=== PATIENT | female | born 1975 | race Caucasian/White ===

== ENCOUNTER 2020-08-13 13:53 | Emergency (ER) | payer OTHER ==
[~2020-08-13] VITALS: Ht 157.5 cm; Wt 66.4 kg
--- NOTE | 2020-08-13 15:19 | NUR ---
pt to room, assumed care. ERP at bedside. UA collected and sent.
[2020-08-13] MEDS ORDERED: LIDOCAINE 5% OINTMENT 35GM TP SCH (16:50)
[2020-08-13] MEDS ORDERED: LIDOCAINE 5% OINTMENT 35GM TP ONE (16:50)
[2020-08-13] MEDS ORDERED: LIDO30CR TOP (17:09)
[2020-08-13 17:42] VITALS: BP 128/81
== END 2020-08-13 17:51 | disposition home or self-care (01) ==
LOC: ER 13:56
DX: N76.0 Acute vaginitis (principal); Z79.899 Other long term (current) drug therapy
CPT/HCPCS: 87070; 87077; 87186; 87210; 99283

== ENCOUNTER 2021-07-28 16:22 | Inpatient (IN) | payer MEDICAID, OTHER ==
[~2021-07-28] VITALS: Ht 157.5 cm; Wt 59.8 kg
[~2021-07-28 16:22] MED LIST: LIDO30CR TOP
--- NOTE | 2021-07-28 18:13 | NUR ---
JANNA WAS CALLED FOR COVID RESULTS; PT IS COVID NEG, RESULTS WILL BE FAXED DR DIAMOND NOTIFIED
[2021-07-28] MEDS ORDERED: heparin sodium, porcine/PF 100unit/ml 5ML syringe IV PRN (18:15)
[2021-07-28 18:17] LABS: BASOPHILS % (AUTO) 0.2 % (0-1); EOSINOPHILS # (AUTO) 0.2 X10'3 (0-0.9); EOSINOPHILS % (AUTO) 2.6 % (0-6); LYMPHOCYTES % (AUTO) 15.1 % (21-51); MEAN CORPUSCULAR HEMOGLOBIN 26.1 PG (27.0-31.0); MEAN CORPUSCULAR HGB CONC 31.9 g/dL (33.0-36.5); MEAN CORPUSCULAR VOLUME 81.7 FL (78-98); MEAN PLATELET VOLUME 7.1 FL (7.4-10.4); MONOCYTES # (AUTO) 0.5 X10'3 (0-0.9); MONOCYTES % (AUTO) 7.4 % (2-12); NEUTROPHILS # (AUTO) 5.1 X10'3 (1.8-7.7); NEUTROPHILS % (AUTO) 74.7 % (42-75); PLATELET COUNT 357 X10'3 (140-440); RED BLOOD COUNT 2.67 X10'6 (4.20-5.60); RED CELL DISTRIBUTION WIDTH 15.7 % (11.5-14.5); WHITE BLOOD COUNT 6.9 X10'3 (4.5-11.0)
[2021-07-28 18:20] LABS: HEMATOCRIT 21.8 % (35.0-45.0); HEMOGLOBIN 6.9 g/dl (12.0-16.0)
[2021-07-28 18:35] LABS: ALANINE AMINOTRANSFERASE 14 U/L (12-78); ALBUMIN 2.6 G/DL (3.4-5.0); ALBUMIN/GLOBULIN RATIO 0.6 (1.1-1.5); ALKALINE PHOSPHATASE 52 IU/L (46-116); ANION GAP 12 (8-16); ASPARTATE AMINO TRANSFERASE 12 U/L (10-37); BILIRUBIN,TOTAL 0.2 MG/DL (0.1-1.0); BLOOD UREA NITROGEN 21 MG/DL (7-18); BUN/CREATININE RATIO 23.3 (6.6-38.0); CALCIUM 8.5 MG/DL (8.5-10.1); CHLORIDE 111 MMOL/L (99-107); GLUCOSE 77 MG/DL (70-104); LIPASE 72 U/L (73-393); POTASSIUM 3.5 MMOL/L (3.5-5.1); SODIUM 142 MMOL/L (135-145); TOTAL CARBON DIOXIDE 18.6 MMOL/L (24-32); TOTAL PROTEIN 7.1 G/DL (6.4-8.2); eGFR 67 ML/MIN
--- NOTE | 2021-07-28 18:49 | NUR ---
PT HAS A PORT ON THE LEFT UPPER CHEST IN PLACE BIG DATA LEAD
[2021-07-28 19:21] LABS: CLARITY,URINE SLIGHTLY CLOUDY (Clear); COLOR,URINE YELLOW (Yellow); GLUCOSE, URINE NEGATIVE (Neg); KETONES,URINE TRACE mg/dl (Neg); LEUKOCYTE ESTERASE ,URINE NEGATIVE (Neg); NITRITES, URINE NEGATIVE (Neg); OCCULT BLOOD,URINE NEGATIVE (Neg); PROTEIN,URINE TRACE mg/dl (Neg); UROBILINOGEN,URINE 0.2 E.U/dL (0.2-1.0)
[2021-07-28 19:26] LABS: UA COLLECTION TYPE STRAIGHT CATH
[2021-07-28 19:33] LABS: BACTERIA,URINE FEW /HPF (Neg); MUCUS STRANDS NONE SEEN /LPF (Neg); SQUAMOUS EPITHELIAL CELL,UR FEW /LPF (FEW); TRANSITIONAL EPI CELLS,URINE FEW /HPF; WBC CLUMPS,URINE FEW /HPF (NEGATIVE)
[2021-07-28] MEDS ORDERED: piperacillin/tazo 3.375gm/50ml 50 ML IV ONE (19:40)
[2021-07-28] MEDS ORDERED: vancomycin/NS 1 GM ADD-VANTAGE 250 ML IV ONE (19:40)
[2021-07-28] MEDS ORDERED: mag hydrox/Alum hydrox/simeth 30ml oral suspension PO PRN (20:15)
[2021-07-28] MEDS ORDERED: magnesium hydroxide 30ml (MOM) UD suspension PO PRN (20:15)
[2021-07-28] MEDS ORDERED: ondansetron/PF 4mg/2ml inj IV PRN (20:15)
[2021-07-28] MEDS ORDERED: HYDROmorphone/PF 0.2 MG/ML SYRINGE IV PRN (20:15)
[2021-07-28] MEDS ORDERED: acetaminophen 325mg tablet PO PRN ×2 (20:15)
[2021-07-28] MEDS ORDERED: HYDROcodone/acetaminophen 5mg/325mg tablet PO PRN (20:15)
[2021-07-28] MEDS ORDERED: ondansetron/PF 4mg/2ml inj IV ONE (20:20)
[2021-07-28] MEDS ORDERED: fentaNYL/PF 50MCG/1 ML 2ML syringe IV ONE (20:20)
[2021-07-28 20:48] LABS: C-REACTIVE PROTEIN 14.04 MG/DL (0.0-0.5); FERRITIN 123 NG/ML (8-252)
[2021-07-28 20:58] LABS: % IRON SATURATION 10 % (11-46); IRON 18 UG/DL (49-151); TOTAL IRON BINDING CAPACITY 180 UG/DL (259-388)
[2021-07-28] MEDS ORDERED: VANCOmycin 1250MG/NS 250ml Bag 250 ML IV SCH (21:00)
[2021-07-28] MEDS ORDERED: iohexol 300mg/ml 100ml inj. ONE (21:33)
[2021-07-28 22:17] VITALS: BP 101/55
[2021-07-28 22:34] VITALS: BP 91/50
[2021-07-28 22:39] VITALS: BP 103/62
[2021-07-28 22:54] VITALS: BP 102/57
[2021-07-28 23:08] VITALS: BP 102/57
[2021-07-29] VITALS (7 sets, daily range): BP systolic 89–103; BP diastolic 46–66
[2021-07-29] MEDS: heparin, porcine 5000 units/ml vial SQ SCH ×4 (00:34→23:04)
[2021-07-29] MEDS: HYDROcodone/acetaminophen 10/325mg tab PO PRN ×4 (00:36→20:20)
[2021-07-29] MEDS: metroNIDAZOLE-Flagyl 500mg/NS 100 ML IV SCH ×2 (01:53→07:37)
[2021-07-29] MEDS ORDERED: GABA600T13 PO (04:37)
[2021-07-29 06:42] LABS: BASOPHILS % (AUTO) 0.4 % (0-1); EOSINOPHILS # (AUTO) 0.2 X10'3 (0-0.9); EOSINOPHILS % (AUTO) 3.6 % (0-6); HEMATOCRIT 24.6 % (35.0-45.0); HEMOGLOBIN 8.2 g/dl (12.0-16.0); LYMPHOCYTES % (AUTO) 17.9 % (21-51); MEAN CORPUSCULAR HEMOGLOBIN 28.1 PG (27.0-31.0); MEAN CORPUSCULAR HGB CONC 33.4 g/dL (33.0-36.5); MEAN CORPUSCULAR VOLUME 84.3 FL (78-98); MEAN PLATELET VOLUME 7.6 FL (7.4-10.4); MONOCYTES # (AUTO) 0.5 X10'3 (0-0.9); MONOCYTES % (AUTO) 7.8 % (2-12); NEUTROPHILS # (AUTO) 4.1 X10'3 (1.8-7.7); NEUTROPHILS % (AUTO) 70.3 % (42-75); PLATELET COUNT 300 X10'3 (140-440); RED BLOOD COUNT 2.91 X10'6 (4.20-5.60); RED CELL DISTRIBUTION WIDTH 16.4 % (11.5-14.5); WHITE BLOOD COUNT 5.8 X10'3 (4.5-11.0)
[2021-07-29 07:08] LABS: ALBUMIN 2.4 G/DL (3.4-5.0); ANION GAP 14 (8-16); BLOOD UREA NITROGEN 19 MG/DL (7-18); BUN/CREATININE RATIO 19.4 (6.6-38.0); CALCIUM 8.9 MG/DL (8.5-10.1); CHLORIDE 111 MMOL/L (99-107); CREATININE 0.98 MG/DL (0.40-0.90); GLUCOSE 83 MG/DL (70-104); POTASSIUM 3.5 MMOL/L (3.5-5.1); SODIUM 143 MMOL/L (135-145); TOTAL CARBON DIOXIDE 17.8 MMOL/L (24-32); eGFR 61 ML/MIN
[2021-07-29] MEDS: docusate sod 100mg capsule PO SCH ×2 (07:20→20:00)
[2021-07-29] MEDS ORDERED: cefTRIAXone 1g/NS 100ml IVPB 100 ML IV SCH (08:00)
[2021-07-29] MEDS: VANCOmycin 1250MG/NS 250ml Bag 250 ML IV SCH ×2 (09:43→20:20)
[2021-07-29] MEDS: normal saline 1000ml 1,000 ML IV SCH ×2 (10:51→17:04)
[2021-07-29] MEDS: iron sucrose complex injection 200 MG in normal saline 100ml IV soln 100 ML IV SCH (11:51)
[2021-07-29] MEDS ORDERED: NO HOME MEDS (13:01)
[2021-07-29] MEDS: metroNIDAZOLE 500mg tablet PO SCH ×2 (13:17→16:59)
[2021-07-29 13:37] LABS: OCCULT BLOOD STOOL NEGATIVE (Neg)
--- NOTE | 2021-07-29 18:16 | NUR ---
Problems reprioritized. Patient report given, questions answered & plan of care reviewed with greta lutz.
--- NOTE | 2021-07-29 22:47 | NUR ---
Paged Dr. Perdomo about a sleep aid for patient.
[2021-07-29] MEDS ORDERED: traZODone 50mg tablet PO PRN (22:50)
--- NOTE | 2021-07-29 22:50 | NUR ---
Received orders from Dr. Perdomo for Trazadone 50mg prn hs for sleep.
[2021-07-30] MEDS: normal saline 1000ml 1,000 ML IV SCH ×3 (02:06→20:30)
[2021-07-30] MEDS: HYDROcodone/acetaminophen 10/325mg tab PO PRN ×4 (02:10→19:40)
[2021-07-30 06:00] VITALS: BP 104/54
[2021-07-30 06:28] LABS: ALBUMIN 2.1 G/DL (3.4-5.0); ANION GAP 13 (8-16); BLOOD UREA NITROGEN 12 MG/DL (7-18); CALCIUM 8.2 MG/DL (8.5-10.1); CHLORIDE 112 MMOL/L (99-107); CREATININE 0.86 MG/DL (0.40-0.90); GLUCOSE 87 MG/DL (70-104); POTASSIUM 3.3 MMOL/L (3.5-5.1); SODIUM 144 MMOL/L (135-145); eGFR 71 ML/MIN
[2021-07-30 06:32] LABS: BASOPHILS % (AUTO) 0.5 % (0-1); EOSINOPHILS # (AUTO) 0.2 X10'3 (0-0.9); EOSINOPHILS % (AUTO) 3.8 % (0-6); HEMATOCRIT 23.2 % (35.0-45.0); HEMOGLOBIN 7.5 g/dl (12.0-16.0); LYMPHOCYTES % (AUTO) 18.8 % (21-51); MEAN CORPUSCULAR HEMOGLOBIN 27.2 PG (27.0-31.0); MEAN CORPUSCULAR HGB CONC 32.3 g/dL (33.0-36.5); MEAN CORPUSCULAR VOLUME 84.1 FL (78-98); MEAN PLATELET VOLUME 7.3 FL (7.4-10.4); MONOCYTES # (AUTO) 0.5 X10'3 (0-0.9); MONOCYTES % (AUTO) 8.7 % (2-12); NEUTROPHILS # (AUTO) 3.7 X10'3 (1.8-7.7); NEUTROPHILS % (AUTO) 68.2 % (42-75); PLATELET COUNT 314 X10'3 (140-440); RED BLOOD COUNT 2.76 X10'6 (4.20-5.60); RED CELL DISTRIBUTION WIDTH 16.3 % (11.5-14.5); WHITE BLOOD COUNT 5.4 X10'3 (4.5-11.0)
--- NOTE | 2021-07-30 06:35 | NUR ---
PAGER ID: [phone] MESSAGE: Flor-Surg [phone] Re: [facility] [id number] please call have questions on another patient as well
--- NOTE | 2021-07-30 06:36 | NUR ---
Bonnie with pharmacy aware of Vanco Trough level 31 this am she will make changes to dose.
--- NOTE | 2021-07-30 07:17 | NUR ---
Patient in room ORTHO 4013. I have received report from Malka GARCIA and had the opportunity to ask questions and assume patient care.
[2021-07-30] MEDS: metroNIDAZOLE 500mg tablet PO SCH ×3 (07:27→17:24)
[2021-07-30] MEDS: iron sucrose complex injection 200 MG in normal saline 100ml IV soln 100 ML IV SCH (07:27)
[2021-07-30] MEDS: heparin, porcine 5000 units/ml vial SQ SCH ×2 (07:28→16:07)
[2021-07-30] MEDS: docusate sod 100mg capsule PO SCH ×2 (08:00→19:39)
[2021-07-30] MEDS: CefTRIAXone 2gm/NS 100ml IVPB 100 ML IV SCH (09:41)
[2021-07-30 10:00] VITALS: BP 103/57
[2021-07-30] MEDS ORDERED: potassium CL 10mEq/100ml bag 100 ML IV PRN (11:15)
[2021-07-30] MEDS ORDERED: potassium Cl 20 mEq SR tablet PO PRN (11:15)
[2021-07-30] MEDS ORDERED: magnesium 4gm in 100ml NS 100 ML IV PRN (11:15)
[2021-07-30] MEDS ORDERED: magnesium Cl slow-release 64mg tablet PO PRN (11:15)
[2021-07-30] MEDS: vancomycin/NS 1 GM ADD-VANTAGE 250 ML IV SCH ×2 (11:17→21:58)
[2021-07-30] MEDS: potassium Cl 20 mEq SR tablet PO PRN ×3 (11:31→19:39)
[2021-07-30 11:41] LABS: MAGNESIUM 1.4 MG/DL (1.5-2.4)
[2021-07-30 14:00] VITALS: BP 106/51
[2021-07-30] MEDS ORDERED: DULO20CA50 PO (14:07)
[2021-07-30] MEDS ORDERED: PENT400T17 PO (14:07)
[2021-07-30] MEDS ORDERED: GABA-530 PO (14:07)
[2021-07-30] MEDS ORDERED: GABA600T13 PO ×2 (14:07)
--- NOTE | 2021-07-30 14:08 | NUR ---
Message: Flor Neuro [phone] Re: Deandre [id number] please review patients med rec. medications are different from what we discussed this am. Pharmacy does not have Zoloft it has been canceled at home pharmacy.
--- NOTE | 2021-07-30 17:30 | NUR ---
PAGER ID: [phone] MESSAGE: Morena [phone] RE: Med Rec on [place] [phone] please address due to different medications we discussed
[2021-07-30 18:00] VITALS: BP 104/69
--- NOTE | 2021-07-30 18:43 | NUR ---
Problems reprioritized. Patient report given, questions answered & plan of care reviewed with Malka GARCIA.
[2021-07-30] MEDS: K and/or MAG REPLACEMENT MC SCH (19:34)
[2021-07-30 22:00] VITALS: BP 106/66
[2021-07-31] MEDS: heparin, porcine 5000 units/ml vial SQ SCH ×4 (00:38→23:43)
[2021-07-31] MEDS: HYDROmorphone inj. 0.5 MG/0.5 ML DISP.SYRIN IV PRN ×2 (00:38→23:19)
[2021-07-31 05:59] LABS: BASOPHILS % (AUTO) 0.3 % (0-1); EOSINOPHILS # (AUTO) 0.2 X10'3 (0-0.9); EOSINOPHILS % (AUTO) 3.8 % (0-6); HEMATOCRIT 24.7 % (35.0-45.0); LYMPHOCYTES # (AUTO) 1.1 X10'3 (1.1-4.8); LYMPHOCYTES % (AUTO) 18.3 % (21-51); MEAN CORPUSCULAR HEMOGLOBIN 27.4 PG (27.0-31.0); MEAN CORPUSCULAR HGB CONC 32.6 g/dL (33.0-36.5); MEAN CORPUSCULAR VOLUME 83.9 FL (78-98); MEAN PLATELET VOLUME 7.1 FL (7.4-10.4); MONOCYTES # (AUTO) 0.5 X10'3 (0-0.9); NEUTROPHILS # (AUTO) 4.1 X10'3 (1.8-7.7); NEUTROPHILS % (AUTO) 69.6 % (42-75); PLATELET COUNT 312 X10'3 (140-440); RED BLOOD COUNT 2.94 X10'6 (4.20-5.60); RED CELL DISTRIBUTION WIDTH 16.6 % (11.5-14.5); WHITE BLOOD COUNT 5.9 X10'3 (4.5-11.0)
[2021-07-31 06:00] VITALS: BP 124/74
[2021-07-31 06:06] LABS: ALBUMIN 2.3 G/DL (3.4-5.0); ANION GAP 12 (8-16); BLOOD UREA NITROGEN 8 MG/DL (7-18); BUN/CREATININE RATIO 9.4 (6.6-38.0); CALCIUM 8.3 MG/DL (8.5-10.1); CHLORIDE 111 MMOL/L (99-107); CREATININE 0.85 MG/DL (0.40-0.90); GLUCOSE 100 MG/DL (70-104); MAGNESIUM 2.3 MG/DL (1.5-2.4); POTASSIUM 3.6 MMOL/L (3.5-5.1); SODIUM 142 MMOL/L (135-145); TOTAL CARBON DIOXIDE 18.7 MMOL/L (24-32); eGFR 72 ML/MIN
[2021-07-31] MEDS: normal saline 1000ml 1,000 ML IV SCH ×2 (06:25→16:44)
[2021-07-31] MEDS: docusate sod 100mg capsule PO SCH ×2 (08:00→20:00)
[2021-07-31] MEDS: K and/or MAG REPLACEMENT MC SCH ×2 (08:00→20:00)
[2021-07-31] MEDS: metroNIDAZOLE 500mg tablet PO SCH ×3 (08:17→17:57)
[2021-07-31] MEDS: iron sucrose complex injection 200 MG in normal saline 100ml IV soln 100 ML IV SCH (08:17)
[2021-07-31] MEDS: HYDROcodone/acetaminophen 10/325mg tab PO PRN ×2 (09:39→16:42)
[2021-07-31] MEDS: CefTRIAXone 2gm/NS 100ml IVPB 100 ML IV SCH (09:39)
[2021-07-31 10:00] VITALS: BP 119/68
--- NOTE | 2021-07-31 12:32 | NUR ---
Diet Consult "gluten free": RADHA ROY requesting RD visit regarding pt food preferences and iron intake education given DX iron deficiency anemia. Pt on regular, gluten free diet per pt request. 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 Pt seen by RD reports hx cervical CA w/ chemo/radiation and unable to tolerate gluten since. RD provided written/verbal iron deficiency nutrition ed w/ RD contact information provided. Pt reports typically drinks ~quart of milk per day and takes iron supplement at home though unaware until recently of vitamin C and calcium impacts on iron absorption. RD encouraged pt to contact dietitian's office if further questions/concerns. Addendum: 07/31/21 at [address] Amended: Links added.
[2021-07-31] MEDS: vancomycin/NS 1 GM ADD-VANTAGE 250 ML IV SCH ×2 (12:33→23:00)
[2021-07-31 14:00] VITALS: BP 112/71
[2021-07-31 17:00] VITALS: BP 121/76
--- NOTE | 2021-07-31 17:12 | NUR ---
[facility] medication delivered to patients bedside. Patients sister came from Critical care for instructions and will come back when her shift is over to slate picker medication and take home with her tonangel
--- NOTE | 2021-07-31 18:42 | NUR ---
Problems reprioritized. Patient report given, questions answered & plan of care reviewed with Tana GARCIA.
[2021-07-31 22:00] VITALS: BP 124/75
[2021-07-31] MEDS ORDERED: VANCOMYCIN LEVEL IV ONE (22:30)
[2021-08-01 02:00] VITALS: BP 108/61
[2021-08-01] MEDS: normal saline 1000ml 1,000 ML IV SCH ×2 (02:25→12:25)
[2021-08-01] MEDS: HYDROmorphone inj. 0.5 MG/0.5 ML DISP.SYRIN IV PRN (05:20)
[2021-08-01 06:30] LABS: BASOPHILS % (AUTO) 0.7 % (0-1); EOSINOPHILS # (AUTO) 0.2 X10'3 (0-0.9); EOSINOPHILS % (AUTO) 4.7 % (0-6); HEMATOCRIT 24.3 % (35.0-45.0); HEMOGLOBIN 7.9 g/dl (12.0-16.0); LYMPHOCYTES # (AUTO) 0.9 X10'3 (1.1-4.8); LYMPHOCYTES % (AUTO) 18.6 % (21-51); MEAN CORPUSCULAR HEMOGLOBIN 27.6 PG (27.0-31.0); MEAN CORPUSCULAR HGB CONC 32.5 g/dL (33.0-36.5); MEAN CORPUSCULAR VOLUME 84.8 FL (78-98); MEAN PLATELET VOLUME 7.5 FL (7.4-10.4); MONOCYTES # (AUTO) 0.4 X10'3 (0-0.9); MONOCYTES % (AUTO) 8.5 % (2-12); NEUTROPHILS # (AUTO) 3.2 X10'3 (1.8-7.7); NEUTROPHILS % (AUTO) 67.5 % (42-75); PLATELET COUNT 302 X10'3 (140-440); RED BLOOD COUNT 2.87 X10'6 (4.20-5.60); RED CELL DISTRIBUTION WIDTH 16.7 % (11.5-14.5); WHITE BLOOD COUNT 4.8 X10'3 (4.5-11.0)
[2021-08-01 06:35] LABS: ALBUMIN 2.2 G/DL (3.4-5.0); ANION GAP 14 (8-16); BLOOD UREA NITROGEN 7 MG/DL (7-18); CALCIUM 7.9 MG/DL (8.5-10.1); CHLORIDE 113 MMOL/L (99-107); GLUCOSE 94 MG/DL (70-104); MAGNESIUM 1.8 MG/DL (1.5-2.4); POTASSIUM 3.5 MMOL/L (3.5-5.1); SODIUM 145 MMOL/L (135-145); TOTAL CARBON DIOXIDE 18.5 MMOL/L (24-32); eGFR 90 ML/MIN
--- NOTE | 2021-08-01 06:44 | NUR ---
Patient in room ORTHO 4013. I have received report from Brittany GARCIA and had the opportunity to ask questions and assume patient care.
[2021-08-01 07:15] VITALS: BP 118/71
[2021-08-01] MEDS: docusate sod 100mg capsule PO SCH (08:00)
[2021-08-01] MEDS: K and/or MAG REPLACEMENT MC SCH (08:00)
[2021-08-01] MEDS: metroNIDAZOLE 500mg tablet PO SCH ×2 (08:29→13:12)
[2021-08-01] MEDS: CefTRIAXone 2gm/NS 100ml IVPB 100 ML IV SCH (08:32)
[2021-08-01] MEDS: HYDROcodone/acetaminophen 10/325mg tab PO PRN (08:32)
[2021-08-01] MEDS: heparin, porcine 5000 units/ml vial SQ SCH (08:39)
[2021-08-01 10:00] VITALS: BP 139/73
--- NOTE | 2021-08-01 10:26 | NUR ---
Initial Pt admit for pubis symphysis osteomyelitis and severe anemia from both chronic disease and iron deficiency per MD note. Noted serum iron levels are low though MCV WNL, pt received daily iron replacement from 07/29-07/31 per EMR. Pt on a gluten free diet and initially eating poorly for the first two meals however up to 75-100% PO intake since lunch 07/30 meeting estimated nutrient needs. LBM 07/31. No nutrition intervention implemented at this time. Will continue to follow. Recommendations: 1) Continue gluten free diet 2) Iron replacement per physician discretion 3) Bowel care per rx 4) Scaled weight this admit; subsequent weekly scaled weights Addendum: 08/01/21 at [address] Amended: Links added.
[2021-08-01] MEDS ORDERED: METR-159 PO (11:28)
[2021-08-01] MEDS ORDERED: VANCOMYCIN 750MG IV in NS 250 ML IV SCH (12:00)
--- NOTE | 2021-08-01 17:50 | NUR ---
patient discharged home with family at this time. Patient Iv taken out and minimal bleeding noted, canula whole and intact upon inspection. Patient left with all of the belongings at discharge and will follow up with Dr. Santos at a later date. Patient new medications have been verbally explained dosing. Patient expressed verbal understanding of all teaching.
[2021-08-02] MEDS ORDERED: VANCOMYCIN LEVEL IV ONE (23:30)
== END 2021-08-01 13:25 | disposition home or self-care (01) | DRG 344 ==
LOC: ER 16:22 → ED HOLD 20:19 → ORTHO 4S 22:50
PROVIDERS: ADMIT Internal Medicine; ATTEND Family Medicine
PROC: 30233N1 Transfusion of Nonautologous Red Blood Cells into Peripheral Vein, Percutaneous Approach (ICD-10-PCS; principal; 2021-07-28)
DX: M86.18 Other acute osteomyelitis, other site (principal); E44.0 Moderate protein-calorie malnutrition; D63.8 Anemia in other chronic diseases classified elsewhere; M25.569 Pain in unspecified knee; R19.7 Diarrhea, unspecified; D50.9 Iron deficiency anemia, unspecified; N89.8 Other specified noninflammatory disorders of vagina; Z85.41 Personal history of malignant neoplasm of cervix uteri; Z90.5 Acquired absence of kidney; Z92.21 Personal history of antineoplastic chemotherapy; Z92.3 Personal history of irradiation; Z68.24 Body mass index [BMI] 24.0-24.9, adult; Z88.5 Allergy status to narcotic agent; Z90.49 Acquired absence of other specified parts of digestive tract; E87.6 Hypokalemia; Z79.899 Other long term (current) drug therapy
CPT/HCPCS: 36415; 36430; 74176; 80048; 80053; 80202; 81001; 82272; 82728; 83540; 83550; 83605; 83690; 83735; 83880; 84443; 85025; 85651; 86140; 86885; 86900; 86901; 86920; 87040; 87081; 87088; 96365; 96368; 99285; G0378; J0696; J1170; J1644; J1756; J2405; J2543; J3010; J3370; J3475; J3490; J7030; P9016; Q9967